=== PATIENT | female | born 1950 | race American Indian/Alaskan Native ===

== ENCOUNTER 2017-04-17 18:02 | Inpatient (IN) | payer OTHER ==
--- NOTE | 2017-04-17 18:28 | ED PDOC ---
HPI: Abdomen Time Seen by Provider: 04/17/17 18:23 Chief Complaint (Nursing): Fever Chief Complaint (Provider): Fever History Per: Patient Additional Complaint(s): Patient is a 66 yo female, PMH of DM, HTN and Hypothyroid, who presents to ED for evaluation of fever. Pt developed fever on a flight from [facility] on 04/11. No other associated symptoms, no cough, congestion, abdominal pain, nausea, vomiting or diarrhea. Patient had dental procedure on 04/09 while in [facility], had a tooth removed, was placed on spirmyacine and developed rash after taking. Pt seen and evaluated at [facility] 2 days ago and was started on Prednisone and Pt was advised to discontinue the medications. Pt was sent for b/l LE dopplers and was told that the results are negative today. Continued fever prompted ED visist. pt taking Paracetamol for fever, last dosage was last night. 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) Drugs: Denies - Allergies Allergies/Adverse Reactions: Allergies Allergy/AdvReac Type Severity Reaction Status Date / Time No Known Allergies Allergy Verified 04/17/17 18:13 Review of Systems ROS Statement: Except As Marked, All Systems Reviewed And Found Negative Constitutional: Positive for: Fever Physical Exam - Reviewed Nursing Documentation Reviewed: Yes Vital Signs Reviewed: Yes - Physical Exam Appears: Positive for: Well, Non-toxic, No Acute Distress Head Exam: Positive for: ATRAUMATIC, NORMAL INSPECTION, NORMOCEPHALIC Skin: Positive for: Normal Color, Warm, DRY Eye Exam: Positive for: EOMI, Normal appearance, PERRL ENT: Positive for: Normal ENT Inspection Neck: Positive for: Normal, Painless ROM Cardiovascular/Chest: Positive for: Regular Rate, Rhythm Respiratory: Positive for: CNT, Normal Breath Sounds Gastrointestinal/Abdominal: Positive for: Normal Exam, Bowel Sounds, Soft Back: Positive for: Normal Inspection Extremity: Positive for: Normal ROM Neurologic/Psych: Positive for: Alert, Oriented - Laboratory Results Result Diagrams: 04/17/17 19:05 04/17/17 19:05 - ECG O2 Sat by Pulse Oximetry: 98 Medical Decision Making Medical Decision Making: IV access established and diagnostics ordered. Pt medicated with Acetaminophen and IVF Case discussed with ED MD, Dr. Ivory, who agreed with treatment plan at this time. On re-eval Pt complaining of SOB. Duo neb initiated. WBC WNL D-Dimer elevated, CTA ordered Case endorsed to LINNEA Oro at 20:00 Disposition - Clinical Impression Clinical Impression: Fever in adult - Disposition Disposition: Transfer of Care (LINNEA Oro) Disposition Time: 20:11 Condition: STABLE - POA Present On Arrival: Poor Glycemic Control
[2017-04-17] MEDS ORDERED: Sodium Chloride 0.9% 1,000 ML IV STA (18:50)
[2017-04-17 19:21] LABS: BASO % 0.2 % (0.0-2.0); HEMOGLOBIN 11.9 g/dL (12.0-16.0); LYMPH # 2.7 K/uL (1.0-4.3); LYMPH % 24.3 % (20.0-40.0); MEAN CELL VOLUME 76.7 fl (81.0-99.0); MEAN CORPUSCULAR HGB CONC 32.5 g/dL (33.0-37.0); MEAN PLATELET VOLUME 8.2 fl (7.2-11.7); MONO % 9.5 % (0.0-10.0); NEUT # 7.2 K/uL (1.8-7.0); RBC 4.75 Mil/uL (3.80-5.20); RED CELL DISTRIBUTION WIDTH 14.9 % (11.5-14.5)
[2017-04-17 19:25] LABS: ALB/GLOB RATIO 1.3 (1.0-2.1); ALBUMIN 4.3 g/dL (3.5-5.0); ALT/SGPT 84 U/L (9-52); AST/SGOT 52 U/L (14-36); BLOOD UREA NITROGEN 45 mg/dl (7-17); CALCIUM 9.5 mg/dL (8.4-10.2); GFR AFRICAN-AMERICAN 54; GFR NON-AFRICAN AMERICAN 45
[2017-04-17 19:32] LABS: PARTIAL THROMBOPLASTIN TIME 26.3 Seconds (25.6-37.1); PROTHROMBIN TIME 11.4 Seconds (9.8-13.1); SQUAMOUS EPITHIAL < 1 /hpf (0-5); URINE BACTERIA FEW (<OCC); URINE BILIRUBIN NEGATIVE (NEGATIVE); URINE BLOOD NEGATIVE (NEGATIVE); URINE CLARITY CLEAR (Clear); URINE COLOR YELLOW (YELLOW); URINE GLUCOSE (UA) NEG (Normal); URINE LEUKOCYTE ESTERASE TRACE Leu/uL (Negative); URINE NITRATE NEGATIVE (NEGATIVE); URINE PROTEIN NEGATIVE (NEGATIVE); URINE UROBILINOGEN 0.2-1.0 mg/dL (0.2-1.0)
[2017-04-17 19:39] LABS: ABG ALLEN TEST YES; ARTERIAL BLOOD GAS O2 SAT 96.4 % (95-98); ARTERIAL BLOOD GAS PCO2 35 mm/Hg (35-45); ARTERIAL BLOOD GAS PH 7.48 (7.35-7.45); ARTERIAL BLOOD GAS PO2 60 mm/Hg (80-100); ARTERIAL BLOOD GAS TCO2 27.2 mmol/L (22-28)
[2017-04-17] MEDS ORDERED: Albuterol-Ipratrop 3 mg / 0.5 (3 ml) UD ONE (19:49)
[2017-04-17] MEDS ORDERED: Albuterol-Ipratrop 3 mg / 0.5 (3 ml) UD INH STA (19:49)
[2017-04-17] MEDS ORDERED: Iodixanol 320 MG/ML 100 ML BOTTLE IV ONE (20:24)
[2017-04-17] MEDS ORDERED: Sodium Chloride 0.9% 50 ML IV ONE (20:25)
--- NOTE | 2017-04-17 21:11 | ED PDOC ---
- Laboratory Results Result Diagrams: 04/17/17 19:05 04/17/17 19:05 - ECG O2 Sat by Pulse Oximetry: 98 - Radiology X-Ray: Interpreted by Me (increased lung markings) - Progress ED Course And Treament: case signed out to advertising copy writer. pt presented to ED with fever and mild cough. [place] a rash-suspended use of abx and rash has cleared afer which fever commenced. fever lasting about 1 week with mild couhg. no other co-morbidities. pt now pending lab results: ESR/HIV/rapid strep/mono/chest xray. pt will get IV bolus of fluids- BUN elevated, but creatinine is normal. MD Dianelys is aware of case. CT scan: FINDINGS: No pulmonary embolism. No aortic dissection or aneurysm. No pleural or pericardial effussions. There are faint hazy opacities in the lower lungs bilaterally and in the lingula that are a nonspecific finding however could be indicative of developing infectious/inflammatory process or developing edema. No focal infiltrate or consolidation identified. There are degenerative changes in the osseous structures. Medical Decision Making Medical Decision Making: pt presented to ED febrile, SOB pt will be admitted due to findings on CT scan of chest for PNA. currently VS are stable and pt will be started on Rocephin admitted under hospitalist_MD cira Pt also described a lesion to left sided abdomen -states it began after taking prednisone for rash 2 days ago and has noted it to be swollen/red/irritated without drainage Disposition - Clinical Impression Clinical Impression: Fever in adult, Pneumonia - POA Present On Arrival: None Core Measure Indicators: Pneumonia - Disposition Disposition: Admitted as In-Patient Disposition Time: 22:57 Condition: STABLE
--- NOTE | 2017-04-17 22:33 | CT ---
EXAM: CT Angiography Chest With Intravenous Contrast CLINICAL HISTORY: 66 years old, female; Signs and symptoms; Fever and shortness of breath; Additional info: SOB, recent flihgt TECHNIQUE: Axial computed tomographic angiography images of the chest with intravenous contrast using pulmonary embolism protocol. This CT exam was performed using one or more of the following dose reduction techniques: automated exposure control, adjustment of the mA and/or kV according to patient size, and/or use of iterative reconstruction technique. MIP reconstructed images were created and reviewed. Coronal and sagittal reformatted images were created and reviewed. CONTRAST: 85 mL of [id number] administered intravenously. EXAM DATE/TIME: 04/17/2017 7:49 PM COMPARISON: No relevant prior studies available. FINDINGS: No pulmonary embolism. No aortic dissection or aneurysm. No pleural or pericardial effussions. There are faint hazy opacities in the lower lungs bilaterally and in the lingula that are a nonspecific finding however could be indicative of developing infectious/inflammatory process or developing edema. No focal infiltrate or consolidation identified. There are degenerative changes in the osseous structures. IMPRESSION: Small faint hazy opacities in the lower lungs and lingula as discussed above.
[2017-04-17] MEDS ORDERED: Azithromycin 500 MG in Sodium Chloride 0.9% 250 ML IVPB STA (22:42)
[2017-04-17] MEDS ORDERED: cefTRIAXone (Rocephin) 1 gm Inj ONE (22:59)
--- NOTE | 2017-04-17 23:37 | CP.PCM.HP ---
History of Present Illness - History of Present Illness History of Present Illness: PCP: Not on staff Chief Complaint:Fever The patient's Daughter was the wrist liner. HPI: 66 years old female with hx of HTN, DM II, Hypothyroidism, developed fever on flight from [facility] 04/11/17. She referred a dental extraction on 04/09/17 while in [facility]. She was placed on Spirmyacine to which she developed a rash. She was seen at the Urgent care on 04/15/17 and was started on prednisone and to discontinue the antibiotic. She was also negative for DVT by a Duplex ultra sound of the lower extremities. Because of the Persisting fever she came to the ED. The patient also referred very mild cough but no expectoration, no nausea, vomits, SOB nor chest pain. PMH: HTN, DM II, Hypothyroidism; PSH: no surgical hx SH: No illegal drug use;No alcoholnor cigarette smoking. FH: Unknown family hx Allergies: NKDA Present on Admission - Present on Admission Any Indicators Present on Admission: No History of DVT/PE: No History of Uncontrolled Diabetes: No Urinary Catheter: No Decubitus Ulcer Present: No Review of Systems - Constitutional Constitutional: Fatigue, Fever. absent: Anorexia, Chills, Headache - EENT Eyes: Requires Corrective Lenses. absent: Floaters, Loss of Peripheral Vision, Photophobia, Sees Flashes Ears: absent: Decreased Hearing, Tinnitus, Dizziness Nose/Mouth/Throat: absent: Epistaxis, Nasal Congestion, Nasal Discharge - Cardiovascular Cardiovascular: absent: Chest Pain, Diaphoresis, Dyspnea on Exertion, Edema - Respiratory Respiratory: absent: Dyspnea - Gastrointestinal Gastrointestinal: absent: Abdominal Pain, Constipation, Diarrhea, Hematochezia - Genitourinary Genitourinary: absent: Dysuria, Flank Pain, Hematuria, Urinary Frequency - Musculoskeletal Musculoskeletal: Back Pain. absent: Deformity, Joint Swelling, Loss of Height - Integumentary Additional comments: Erythematous papular rash diffuse on the upper extremities and the lower extremities left abdominal wall with an erythematous lesion 1cm+ at the mid left abdomen, non tender to palpation and - Neurological Neurological: absent: Confusion, Dizziness, Focal Weakness, Headaches, Sensory Deficit, Syncope - Psychiatric Psychiatric: absent: Anxiety, Depression, Difficulty Concentrating, Panic Attacks - Endocrine Endocrine: absent: Palpitations, Polydipsia, Polyphagia, Polyuria - Hematologic/Lymphatic Hematologic: absent: Easy Bleeding, Easy Bruising Past Patient History - Past Social History Smoking Status: Never Smoked Chewing Tobacco Use: No Cigar Use: No Alcohol: > 2 Drinks/Day (former alcoholic) Drugs: Denies Home Situation {Lives}: With Family - CARDIAC Hx Hypertension: Yes - PULMONARY Hx Respiratory Disorders: No - NEUROLOGICAL Hx Neurological Disorder: No - HEENT Hx HEENT Problems: No - RENAL Hx Chronic Kidney Disease: No - ENDOCRINE/METABOLIC Hx Diabetes Mellitus Type 2: Yes Hx Hyperthyroidism: Yes - INTEGUMENTARY Hx Dermatological Problems: No - GASTROINTESTINAL Hx Gastrointestinal Disorders: No - GENITOURINARY/GYNECOLOGICAL Hx Genitourinary Disorders: Yes Other/Comment: ovarian cysts. - PSYCHIATRIC Hx Substance Use: No - SURGICAL HISTORY Hx Abdominal Aortic Aneurysm Repair: No - ANESTHESIA Hx Anesthesia: No Meds Allergies/Adverse Reactions: Allergies Allergy/AdvReac Type Severity Reaction Status Date / Time No Known Allergies Allergy Verified 04/17/17 18:13 Physical Exam - Head Exam Head Exam: ATRAUMATIC, NORMAL INSPECTION, NORMOCEPHALIC - Eye Exam Eye Exam: EOMI, Normal appearance Pupil Exam: NORMAL ACCOMODATION, PERRL - ENT Exam ENT Exam: Mucous Membranes Moist, Normal Exam, Normal External Ear Exam, Normal Oropharynx - Neck Exam Neck exam: Positive for: Full Rom, Normal Inspection. Negative for: Lymphadenopathy, Tenderness - Respiratory Exam Respiratory Exam: Clear to Auscultation Bilateral, Rales, Rhonchi, Wheezes. absent: Stridor - Cardiovascular Exam Cardiovascular Exam: REGULAR RHYTHM, RRR, +S1, +S2 - GI/Abdominal Exam Additional comments: Full, Soft, nontender, decreased bowel sounds - Rectal Exam Rectal Exam: Deferred - Extremities Exam Extremities exam: Positive for: normal inspection - Back Exam Back exam: NORMAL INSPECTION Additional comments: pain to the right lower back which developed in the ER while lying on the stretche, - Neurological Exam Neurological exam: Alert, CN II-XII Intact, Oriented x3, Reflexes Normal - Psychiatric Exam Psychiatric exam: Normal Affect, Normal Mood - Skin Skin Exam: Dry, Intact, Normal Color, Warm Results - Vital Signs Recent Vital Signs: Last Vital Signs Temp 98.2 F 04/17/17 22:45 Pulse 85 04/17/17 22:45 Resp 21 04/17/17 22:45 BP 102/51 L 04/17/17 22:45 Pulse Ox 98 04/17/17 22:59 - Labs Result Diagrams: 04/17/17 19:05 04/17/17 19:05 Labs: Laboratory Results - last 24 hr 04/17/17 22:42 HIV-1 Ab Rapid Screen Non reactive - EKG Data EKG comments: EKG NSR at 78 bpm, no axis devation or Acute ST changes - Imaging and Cardiology CT scan - chest Status: Report reviewed by me Additional comment: FINDINGS: No pulmonary embolism. No aortic dissection or aneurysm. No pleural or pericardial effussions. There are faint hazy opacities in the lower lungs bilaterally and in the lingula that are a nonspecific finding however could be indicative of developing infectious/inflammatory process or developing edema. No focal infiltrate or consolidation identified. There are degenerative changes in the osseous structures. IMPRESSION: Small faint hazy opacities in the lower lungs and lingula as discussed above. Assessment & Plan - Assessment and Plan (Free Text) Assessment: #.Fever #. Lung Opacity #. Azotemia #. Leukocytosis #. DM II Plan: 66 years old female with hx of HTN, DM II, Hypothyroidism, developed fever on flight from [facility] 04/11/17. She had a dental extraction on 04/09/17nd was placed on Spirmyacine to which she developed a rash. She was seen at the Urgent care on 04/15/17 and was started on prednisone. Because of the Persisting fever she came to the ED. #.Fever etiology unclear. with hx of incomplete antibiotics post dental extraction, which could mean an infected tooth. She has mild drug rash which could give her fever and she has the lung opacity. - Follow blood cultures - Consult Dr Holbrook ID - Patient started on Rocephin and Azithromycin #. Lung Opacity r/o Pneumonia - Consult DR King Pulnilo - Continue above antibiotics #. Azotemia - IV Fluids D5 1/2 normal saline - follow renal labs #. Leukocytosis - follow WBC #. DM II - Diabetic diet - Regular insulin with Accucheck ACHS #. Elevated D Dimer- CT Chest negative for PE #. DVT Prophylaxis with Lovenox #. Code Status D - Date & Time Date: 04/17/17 Time: 23:37
[2017-04-18 07:28] LABS: BASO % 0.2 % (0.0-2.0); EOS % 0.1 % (0.0-4.0); HEMOGLOBIN 10.8 g/dL (12.0-16.0); LYMPH # 1.3 K/uL (1.0-4.3); MEAN CELL VOLUME 77.3 fl (81.0-99.0); MEAN CORPUSCULAR HEMOGLOBIN 24.8 pg (27.0-31.0); MEAN CORPUSCULAR HGB CONC 32.2 g/dL (33.0-37.0); MEAN PLATELET VOLUME 8.1 fl (7.2-11.7); MONO # 0.6 K/uL (0.0-0.8); NEUT # 4.5 K/uL (1.8-7.0); NEUT % 70.7 % (50.0-75.0); RBC 4.35 Mil/uL (3.80-5.20); RED CELL DISTRIBUTION WIDTH 14.8 % (11.5-14.5); WHITE BLOOD COUNT 6.3 K/uL (4.8-10.8)
[2017-04-18] MEDS: Sodium Chloride 0.9% 1,000 ML IV SCH ×3 (08:37→17:37)
[2017-04-18] MEDS: GlipiZIDE 5 mg SR Tab PO SCH (08:45)
[2017-04-18] MEDS: Levothyroxine 75 MCG TAB PO SCH (08:45)
[2017-04-18] MEDS ORDERED: Patient's Own Med (Valsartan/Hydrochlorothiazide [Valsartan-Hctz 160-12.5 Mg Tab] 1 TAB) PO SCH (09:00)
[2017-04-18] MEDS: Enoxaparin 40 mg Syringe SC SCH (09:04)
--- NOTE | 2017-04-18 09:54 | CP.PCM.PN ---
Subjective - Date & Time of Evaluation Date of Evaluation: 04/18/17 Time of Evaluation: 09:44 - Subjective Subjective: Serenity is a 66 YO F is seen w/ her daughter at bedside. Patient states that she slept well overnight but had some chills thoughout the night. She had a TMAX last night of 99.7. Patient has a decreased appetite. She complains of a b/l temporal headache 6/10 which has been present for a week, which subsides to a 4/ 10 with tylenol. Denies head trauma, blurring of vision, dizziness, or vomiting. She does have some nausea. She has also developed some diffuse rash on the medial aspect of her forearm b/l which comes and goes, does not itch burn or hurt. Objective - Vital Signs/Intake and Output Vital Signs (last 24 hours): Temp Pulse Resp BP Pulse Ox 98.5 F 75 19 104/60 99 04/18/17 07:58 04/18/17 08:49 04/18/17 07:58 04/18/17 08:49 04/18/17 07:58 - Medications Medications: Current Medications Acetaminophen (Tylenol 325mg Tab) 650 mg PO Q4 PRN PRN Reason: Pain, Mild (1-3) Atorvastatin Calcium (Lipitor) 10 mg PO DAILY [facility] Last Admin: 04/18/17 08:45 Dose: 10 mg Diphenhydramine HCl (Benadryl) 25 mg PO Q6 PRN PRN Reason: Rash Enoxaparin Sodium (Lovenox) 40 mg SC DAILY [facility] PRN Reason: Protocol Last Admin: 04/18/17 09:04 Dose: 40 mg Glipizide (Glucotrol Xl) 5 mg PO BRK [facility] Last Admin: 04/18/17 08:45 Dose: 5 mg Hydrochlorothiazide (Microzide) 12.5 mg PO DAILY [facility] Last Admin: 04/18/17 08:45 Dose: 12.5 mg Azithromycin 500 mg/ Sodium (Chloride) 250 mls @ 250 mls/hr IVPB DAILY [facility] Ceftriaxone Sodium 1 gm/ (Sodium Chloride) 100 mls @ 100 mls/hr IVPB DAILY [facility] Last Admin: 04/18/17 09:15 Dose: 100 mls/hr Sodium Chloride (Sodium Chloride 0.9%) 1,000 mls @ 125 mls/hr IV .Q8H [facility] Stop: 04/19/17 00:39 Last Admin: 04/18/17 08:50 Dose: 125 mls/hr Levothyroxine Sodium (Synthroid) 75 mcg PO DAILY@0630 [facility] Last Admin: 04/18/17 08:45 Dose: 75 mcg Metoprolol Tartrate (Lopressor) 100 mg PO DAILY [facility] Last Admin: 04/18/17 08:49 Dose: 100 mg Prednisone (Prednisone Tab) 40 mg PO DAILY [facility] Stop: 04/20/17 09:01 Last Admin: 04/18/17 08:46 Dose: 40 mg Valsartan (Diovan) 160 mg PO DAILY [facility] Last Admin: 04/18/17 08:45 Dose: 160 mg - Labs Labs: 04/18/17 07:10 PT 11.4 Seconds (9.8-13.1) 04/17/17 19:05 INR 1.0 (0.9-1.2) 04/17/17 19:05 APTT 26.3 Seconds (25.6-37.1) 04/17/17 19:05 - Constitutional Appears: No Acute Distress - Head Exam Head Exam: ATRAUMATIC, NORMAL INSPECTION, NORMOCEPHALIC Additional comments: No tenderness on palpation on maxilary and frontal sinus regions - Eye Exam Eye Exam: Normal appearance - ENT Exam ENT Exam: Mucous Membranes Moist, Normal Exam - Respiratory Exam Respiratory Exam: Clear to Ausculation Bilateral, NORMAL BREATHING PATTERN. absent: Rhonchi, Wheezes - Cardiovascular Exam Cardiovascular Exam: REGULAR RHYTHM, +S1, +S2 - GI/Abdominal Exam GI & Abdominal Exam: Soft, Normal Bowel Sounds. absent: Tenderness - Rectal Exam Rectal Exam: NORMAL INSPECTION - Extremities Exam Additional comments: Diffuse rash over medial aspect of forearm b/l - Back Exam Back Exam: NORMAL INSPECTION - Neurological Exam Neurological Exam: Alert, Awake, CN II-XII Intact, Oriented x3 - Skin Skin Exam: Rash Additional comments: Erythematous papular diffuse rash on upper extremities . Left abdominal wall: Erythematous lesion 2cmx2 cm circular lesion. Non tender to palpate Assessment and Plan - Assessment and Plan (Free Text) Assessment: 66 years old female with hx of HTN, DM II, Hypothyroidism, developed fever on flight from [place] 04/11/17. She had a dental extraction on 04/09/17nd was placed on Spirmyacine to which she developed a rash. She was seen at the Urgent care on 04/15/17 and was started on prednisone. Because of the Persisting fever she came to the ED. 1) Fever etiology unclear. with hx of incomplete antibiotics post dental extraction, which could mean an infected tooth. She has mild drug rash which could give her fever and she has the lung opacity. - Afebrile currently, TMAX of 99.7 over night - WBC trending down - Follow blood cultures - Consult Dr Sheron ROSA - Continue Rocephin and Azithromycin . One dose of Vancomycin has been ordered for today as well. 2) Lung Opacity r/o Pneumonia - Consult DR King Pulmonmukesh - Continue above antibiotics 3) Azotemia - IV Fluids D5 1/2 normal saline - follow renal labs 4 )Leukocytosis ( Resloved) - WBC are trending down from 11 to 6.4 5) DM II - Diabetic diet - Regular insulin with Accucheck ACHS 6) Diffuse Rash - Benedryl ordered 25 mg PRN\ - Continue monitoring - ID consulted 7) Temporal headache - Tylenol 650 mg Q6 PRN 8). Elevated D Dimer- CT Chest negative for PE 9). DVT Prophylaxis - Lovenox Full code
--- NOTE | 2017-04-18 11:02 | RAD ---
HISTORY: fever COMPARISON: No prior. TECHNIQUE: Chest PA and lateral FINDINGS: LUNGS: The lungs are well inflated. There is bibasilar atelectasis. PLEURA: No significant pleural effusion identified. No pneumothorax apparent. CARDIOVASCULAR: Normal. OSSEOUS STRUCTURES: Within normal limits for the patient's age. VISUALIZED UPPER ABDOMEN: Normal. OTHER FINDINGS: None. IMPRESSION: Bibasilar atelectasis. No lobar pneumonia.
[2017-04-18 11:11] LABS: ALB/GLOB RATIO 1.2 (1.0-2.1); ALBUMIN 3.4 g/dL (3.5-5.0); ALT/SGPT 73 U/L (9-52); AST/SGOT 35 U/L (14-36); BLOOD UREA NITROGEN 27 mg/dl (7-17); CALCIUM 8.4 mg/dL (8.4-10.2); GFR AFRICAN-AMERICAN > 60; GFR NON-AFRICAN AMERICAN > 60
--- NOTE | 2017-04-18 11:30 | CARD ---
APPROVED REPORT EKG Measurement Heart [id number] <Conclusion> Normal sinus rhythm with sinus arrhythmia Normal ECG
[2017-04-18] MEDS ORDERED: Lidocaine 1% Inj (20ml) ONE (14:32)
--- NOTE | 2017-04-18 15:00 | PCM.SURG1 ---
Surgeon's Initial Post Op Note - Surgeon's Notes Surgeon: Guy Shepard MD Display And Banner Designer: [employer] Type of Anesthesia: Local Pre-Operative Diagnosis: Poor venous access Operative Findings: US showed patent right brachial vein. Post-Operative Diagnosis: Poor venous access Operation Performed: PLacement of single lumen picc 37 cm via the right brachial vein. Tip of picc is in SVC. Specimen/Specimens Removed: none Estimated Blood Loss: EBL {In ML}: 2 Blood Products Given: N/A Drains Used: No Drains Post-Op Condition: Fair Date of Surgery/Procedure: 04/18/17 Time of Surgery/Procedure: 14:55
[2017-04-18] MEDS: Azithromycin 500 MG in Sodium Chloride 0.9% 250 ML IVPB SCH (17:00)
--- NOTE | 2017-04-18 17:59 | CP.PCM.CON ---
History of Present Illness - History of Present Illness History of Present Illness: Pulmonary consult for cough/fever, r/o PNA. Call in Pulmonary consult on 66 y/o F, admitted to [facility] on 04/17/17 due to Fever( in ER 102.8 F), associated to intermittent mild cough, nonproductive, non bloody. As per Pt, she was out of the country visiting [facility] and was Tx for a dental work at same time, there after she was placed in Spirmyacine having adverse reaction to the abx. Pt developed rash on the L abdominal wall and extremities. the abx was discontinue and while she was flying back to this country she start developing cough and high fever. On evaluation Pt has been found with Tache Noire on left abdominal wall and nonpruritic rash on extremities, family is concern about the Bouttoneuse fever. Pt denied: Dizziness, LOC, n/v/d, abdominal pain, urinary symptoms, CP, Palpitation, SOB, chest congestion. PMHx: HTN, DMII, Hypothyroidism. CT Chest: Hazy opacities in the lower lungs and ingula, could be developing infectious or inflammatory process. CXR shows no PNA, Bibasilar atelectasis. Review of Systems - Constitutional Constitutional: Fever - EENT Eyes: Requires Corrective Lenses Nose/Mouth/Throat: Other (negative) - Cardiovascular Cardiovascular: Other (negative) - Respiratory Respiratory: Cough - Gastrointestinal Gastrointestinal: Other (negative) - Genitourinary Genitourinary: Other (negative) - Musculoskeletal Musculoskeletal: Back Pain - Integumentary Integumentary: Erythema, Rash - Neurological Neurological: Other (negative) - Psychiatric Psychiatric: Other (negative) - Endocrine Endocrine: Other (negative) - Hematologic/Lymphatic Hematologic: Other (negative) Past Patient History - Past Medical History & Family History Past Medical History?: Yes - Past Social History Smoking Status: Never Smoked Chewing Tobacco Use: No Cigar Use: No Alcohol: > 2 Drinks/Day (former alcoholic) Drugs: Denies Home Situation {Lives}: With Family - CARDIAC Hx Cardiac Disorders: Yes Hx Hypertension: Yes - PULMONARY Hx Respiratory Disorders: No - NEUROLOGICAL Hx Neurological Disorder: No - HEENT Hx HEENT Problems: No - RENAL Hx Chronic Kidney Disease: No - ENDOCRINE/METABOLIC Hx Endocrine Disorders: Yes Hx Diabetes Mellitus Type 2: Yes Hx Hyperthyroidism: Yes - HEMATOLOGICAL/ONCOLOGICAL Hx Blood Disorders: No Hx AIDS: No Hx Human Immunodeficiency Virus (HIV): No - INTEGUMENTARY Hx Dermatological Problems: No - MUSCULOSKELETAL/RHEUMATOLOGICAL Hx Falls: No - GASTROINTESTINAL Hx Gastrointestinal Disorders: No - GENITOURINARY/GYNECOLOGICAL Hx Genitourinary Disorders: Yes Other/Comment: ovarian cysts. - PSYCHIATRIC Hx Substance Use: No - SURGICAL HISTORY Hx Abdominal Aortic Aneurysm Repair: No - ANESTHESIA Hx Anesthesia: No Meds Home Medications: Home Medication List Medication Instructions Recorded Confirmed Type Doxycycline Hyclate 100 mg PO BID #14 capsule 04/19/17 Rx Allergies/Adverse Reactions: Allergies Allergy/AdvReac Type Severity Reaction Status Date / Time No Known Allergies Allergy Verified 04/17/17 18:13 - Medications Medications: Current Medications Acetaminophen (Tylenol 325mg Tab) 650 mg PO Q4 PRN PRN Reason: Pain, Mild (1-3) Atorvastatin Calcium (Lipitor) 10 mg PO DAILY [facility] Last Admin: 04/18/17 08:45 Dose: 10 mg Diphenhydramine HCl (Benadryl) 25 mg PO Q6 PRN PRN Reason: Rash Last Admin: 04/18/17 10:41 Dose: 25 mg Doxycycline Hyclate (Doryx) 100 mg PO Q12 [facility] Enoxaparin Sodium (Lovenox) 40 mg SC DAILY [facility] PRN Reason: Protocol Last Admin: 04/18/17 09:04 Dose: 40 mg Glipizide (Glucotrol Xl) 5 mg PO BRK [facility] Last Admin: 04/18/17 08:45 Dose: 5 mg Hydrochlorothiazide (Microzide) 12.5 mg PO DAILY [facility] Last Admin: 04/18/17 08:45 Dose: 12.5 mg Azithromycin 500 mg/ Sodium (Chloride) 250 mls @ 250 mls/hr IVPB DAILY [facility] Last Admin: 04/18/17 17:00 Dose: 250 mls/hr Ceftriaxone Sodium 1 gm/ (Sodium Chloride) 100 mls @ 100 mls/hr IVPB DAILY [facility] Last Admin: 04/18/17 09:15 Dose: 100 mls/hr Sodium Chloride (Sodium Chloride 0.9%) 1,000 mls @ 125 mls/hr IV .Q8H [facility] Stop: 04/19/17 00:39 Last Admin: 04/18/17 17:37 Dose: Not Given Levothyroxine Sodium (Synthroid) 75 mcg PO DAILY@0630 [facility] Last Admin: 04/18/17 08:45 Dose: 75 mcg Metoprolol Tartrate (Lopressor) 100 mg PO DAILY [facility] Last Admin: 04/18/17 08:49 Dose: 100 mg Prednisone (Prednisone Tab) 40 mg PO DAILY [facility] Stop: 04/20/17 09:01 Last Admin: 04/18/17 08:46 Dose: 40 mg Valsartan (Diovan) 160 mg PO DAILY [facility] Last Admin: 04/18/17 08:45 Dose: 160 mg Physical Exam - Head Exam Head Exam: NORMAL INSPECTION - Eye Exam Eye Exam: PERRL - ENT Exam ENT Exam: Mucous Membranes Moist - Neck Exam Neck exam: Positive for: Full Rom, Normal Inspection - Respiratory Exam Respiratory Exam: Decreased Breath Sounds - Cardiovascular Exam Cardiovascular Exam: REGULAR RHYTHM - GI/Abdominal Exam GI & Abdominal Exam: Normal Bowel Sounds, Soft - Extremities Exam Extremities exam: Positive for: normal inspection - Back Exam Back exam: NORMAL INSPECTION - Neurological Exam Neurological exam: Alert, CN II-XII Intact, Oriented x3 - Psychiatric Exam Psychiatric exam: Normal Mood - Skin Skin Exam: Dry, Rash (+ Tache Noire abdominal wall.) Results - Vital Signs Recent Vital Signs: Last Vital Signs Temp 99.9 F H 04/18/17 16:20 Pulse 71 04/18/17 16:20 Resp 18 04/18/17 16:20 BP 122/65 04/18/17 16:20 Pulse Ox 93 L 04/18/17 16:20 zoe, Janis - Labs Result Diagrams: 04/19/17 05:20 04/19/17 05:20 Labs: Laboratory Results - last 24 hr 04/18/17 04/18/17 04/18/17 07:10 10:56 11:08 WBC 6.3 RBC 4.35 Hgb 10.8 L Hct 33.6 L MCV 77.3 L MCH 24.8 L MCHC 32.2 L RDW 14.8 H Plt Count 225 MPV 8.1 Neut % (Auto) 70.7 Lymph % (Auto) 20.0 [place] % (Auto) 9.0 Eos % (Auto) 0.1 Baso % (Auto) 0.2 Neut # 4.5 Lymph # 1.3 [place] # 0.6 Eos # 0.0 Baso # 0.0 Sodium 135 Potassium 4.1 Chloride 102 Carbon Dioxide 25 Anion Gap 13 BUN 27 H Creatinine 0.9 Est GFR ( Amer) > 60 Est GFR (Non-Af Amer) > 60 POC Glucose (mg/dL) 219 H Random Glucose 107 H Calcium 8.4 Total Bilirubin 0.3 AST 35 ALT 73 H Alkaline Phosphatase 136 H Total Protein 6.3 Albumin 3.4 L D Globulin 2.9 Albumin/Globulin Ratio 1.2 04/18/17 15:46 WBC RBC Hgb Hct MCV MCH MCHC RDW Plt Count MPV Neut % (Auto) Lymph % (Auto) [place] % (Auto) Eos % (Auto) Baso % (Auto) Neut # Lymph # [place] # Eos # Baso # Sodium Potassium Chloride Carbon Dioxide Anion Gap BUN Creatinine Est GFR ( Amer) Est GFR (Non-Af Amer) POC Glucose (mg/dL) 391 H Random Glucose Calcium Total Bilirubin AST ALT Alkaline Phosphatase Total Protein Albumin Globulin Albumin/Globulin Ratio reviewed J.P. - EKG Data EKG comments: reviewed J.P. - Imaging and Cardiology CT scan - chest Status: Report reviewed by me (J.P.) Chest x-ray Status: Report reviewed by me (FredrickP.) Assessment & Plan (1) Fever in adult Status: Acute Priority: High (2) Skin rash Status: Acute Priority: High - Assessment and Plan (Free Text) Plan: Developing PNA can not be completely rule out, f/u Serial CXR. and work up other etiology of fever. - Date & Time Date: 04/18/17 Time: 14:00
--- NOTE | 2017-04-18 19:02 | CP.PCM.CON ---
History of Present Illness - History of Present Illness History of Present Illness: 66 yo female, PMH of DM, HTN and Hypothyroid, who presents to ED for evaluation of fever. Pt developed fever on a flight from [facility] [place] on 04/11. No other associated symptoms, no cough, congestion, abdominal pain, nausea, vomiting or diarrhea. Patient had dental procedure on 04/09 while in [facility] [place], had a tooth removed, was placed on spirmyacine and developed rash after taking. Pt seen and evaluated at [facility] 2 days ago and was started on Prednisone and Pt was advised to discontinue the medications. Pt was sent for b/l LE dopplers and was told that the results are negative today. Continued fever prompted ED visist. pt taking Paracetamol for fever, last dosage was last night. family concerned for boutonneuse fever transmitted by dog tick caused by ricketssia connori patient has tache noire on left abd wall and nonpruritic rash on extremities Review of Systems - Review of Systems Systems not reviewed;Unavailable: Language Barrier - Constitutional Constitutional: As Per HPI - EENT Eyes: absent: As Per HPI, Blind Spots, Blurred Vision, Change in Vision, Decreased Night Vision, Diplopia, Discharge, Dry Eye, Exophthalmos, Floaters, Irritation, Itchy Eyes, Loss of Peripheral Vision, Pain, Photophobia, Requires Corrective Lenses, Sees Flashes, Spots in Vision, Tunnel Vision, Other Visual Disturbances, Loss of Vision, Other Ears: absent: As Per HPI, Decreased Hearing, Ear Discharge, Ear Pain, Tinnitus, Abnormal Hearing, Disequilibrium, Dizziness, Other Nose/Mouth/Throat: absent: As Per HPI, Epistaxis, Nasal Congestion, Nasal Discharge, Nasal Obstruction, Nasal Trauma, Nose Pain, Post Nasal Drip, Sinus Pain, Sinus Pressure, Bleeding Gums, Change in Voice, Dental Pain, Dry Mouth, Dysphagia, Halitosis, Hoarsness, Lip Swelling, Mouth Lesions, Mouth Pain, Odynophagia, Sore Throat, Throat Swelling, Tongue Swelling, Facial Pain, Neck Pain, Neck Mass, Other - Breasts Breasts: absent: As Per HPI, Change in Shape, Mass, Pain, Nipple Discharge, Nipple Inversion, Skin Changes, Swelling, Other - Cardiovascular Cardiovascular: absent: As Per HPI, Acrocyanosis, Chest Pain, Chest Pain at Rest , Chest Pain with Activity, Claudication, Diaphoresis, Dyspnea, Dyspnea on Exertion, Edema, Irregular Heart Rhythm, Pain Radiating to Arm/Neck/Jaw, Leg Edema, Leg Ulcers, Lightheadedness, Orthopnea, Palpitations, Paroxysmal Nocturnal Dyspnea, Pedal Edema, Radiating Pain, Rapid Heart Rate, Slow Heart Rate, Syncope, Other - Respiratory Respiratory: absent: As Per HPI, Cough, Dyspnea, Hemoptysis, Dyspnea on Exertion , Wheezing, Snoring, Stridor, Pain on Inspiration, Chest Congestion, Excessive Mucous Production, Change in Mucous Color, Pain with Coughing, Other - Gastrointestinal Gastrointestinal: absent: As Per HPI, Abdominal Pain, Belching, Bloating, Change in Bowel Habits, Change in Stool Character, Coffee Ground Emesis, Constipation, Cramping, Diarrhea, Dyspepsia, Dysphagia, Early Satiety, Excessive Flatus, Fecal Incontinence, Heartburn, Hematemesis, Hematochezia, Loose Stools, Melena, Nausea, Odynophagia, Temesmus, Vomiting, Other - Genitourinary Genitourinary: absent: As Per HPI, Change in Urinary Stream, Difficulty Urinating, Dysuria, Flank Pain, Hematuria, Pyuria, Nocturia, Urinary Incontinence, Urinary Frequency, Urinary Hesitance, Urinary Urgency, Voiding Freq/Small Amts, Freq UTI, Hx Renal/Bladder Calculi, Hx /Renal Surgery, Bladder Distension, Other - Reproductive: Female Reproductive:Female: absent: As Per HPI, Amenorrhea, Amenorrhea/ Control, Currently Menstual, Cycle <21 Days, Cycle >35 Days, Cycle Variable, Menses 1-7 Days, Menses >/= 8 Days, Menses Variable, Cycle > 4 Weeks Between, No Menses for 6 Months, Heavy Menses, Light Menses, Normal Menses, Spotting Between Cycles , S/P Hysterectomy, Menopausal, Post Menopausal, Premenarche, Abnormal Vaginal Bleeding, Dysmenorrhea, Dyspareunia, Genital Lesions, Genital Pruritis, Pelvic Pain, Prolapse Symptoms, Sexual Dysfunction, Vaginal Discharge, Vaginal Dryness , Vaginal Odor, Vaginal Pruritis, Other - Menstruation Menstruation: absent: As Per HPI, Amenorrhea, Amenorrhea/ Control, Currently Menstual, Cycle <21 Days, Cycle >35 Days, Cycle Variable, Menses 1-7 Days, Menses >/= 8 Days, Menses Variable, Cycle > 4 Weeks Between, No Menses for 6 Months, Heavy Menses, Light Menses, Normal Menses, Spotting Between Cycles , S/P Hysterectomy, Menopausal, Post Menopausal, Premenarche, Abnormal Vaginal Bleeding, Dysmenorrhea, Other - Musculoskeletal Musculoskeletal: absent: As Per HPI, Abnormal Gait, Arthralgias, Atrophy, Back Pain, Deformity, Joint Swelling, Limited Range of Motion, Loss of Height, Muscle Cramps, Muscle Weakness, Myalgias, Neck Pain, Numbness, Radiating Pain into Limb, Stiffness, Tingling, Other - Integumentary Integumentary: As Per HPI - Neurological Neurological: absent: As Per HPI, Abnormal Gait, Abnormal Hearing, Abnormal Movements, Abnormal Speech, Behavioral Changes, Burning Sensations, Confusion, Convulsions, Disequilibrium, Dizziness, Numbness, Focal Weakness, Frequent Falls , Headaches, Lack of Coordination, Loss of Vision, Memory Loss, Paresthesias, Radicular Pain, Restless Legs, Sensory Deficit, Syncope, Tingling, Tremor, Vertigo, Weakness, Other Visual Disturbances, Other - Psychiatric Psychiatric: absent: As Per HPI, Abnormal Sleep Pattern, Anhedonia, Anxiety, Auditory Hallucinations, Behavioral Changes, Change in Appetite, Change in Libido, Confusion, Depression, Difficulty Concentrating, Hallucinations, Homicidal Ideation, Hopelessness, Irritability, Memory Loss, Mood Swings, Panic Attacks, Paranoia, Suicidal Ideation, Visual Hallucinations, Tactile Hallucinations, Other - Endocrine Endocrine: absent: As Per HPI, Change in Body Appearance, Change in Libido, Cold Intolorance, Deepening of Voice, Excessive Sweating, Fatigue, Flushing, Heat Intolorance, Increase in Ring/Shoe/Hat Size, Palpitations, Polydipsia, Polyphagia, Polyuria, Other - Hematologic/Lymphatic Hematologic: absent: As Per HPI, Easy Bleeding, Easy Bruising, Lymphadenopathy, Other Past Patient History - Past Medical History & Family History Past Medical History?: Yes - Past Social History Smoking Status: Never Smoked Chewing Tobacco Use: No Cigar Use: No Alcohol: > 2 Drinks/Day (former alcoholic) Drugs: Denies Home Situation {Lives}: With Family - CARDIAC Hx Hypertension: Yes - PULMONARY Hx Respiratory Disorders: No - NEUROLOGICAL Hx Neurological Disorder: No - HEENT Hx HEENT Problems: No - RENAL Hx Chronic Kidney Disease: No - ENDOCRINE/METABOLIC Hx Diabetes Mellitus Type 2: Yes Hx Hyperthyroidism: Yes - HEMATOLOGICAL/ONCOLOGICAL Hx Blood Disorders: No Hx AIDS: No Hx Human Immunodeficiency Virus (HIV): No - INTEGUMENTARY Hx Dermatological Problems: No - MUSCULOSKELETAL/RHEUMATOLOGICAL Hx Falls: No - GASTROINTESTINAL Hx Gastrointestinal Disorders: No - GENITOURINARY/GYNECOLOGICAL Hx Genitourinary Disorders: Yes Other/Comment: ovarian cysts. - PSYCHIATRIC Hx Substance Use: No - SURGICAL HISTORY Hx Abdominal Aortic Aneurysm Repair: No - ANESTHESIA Hx Anesthesia: No Meds Allergies/Adverse Reactions: Allergies Allergy/AdvReac Type Severity Reaction Status Date / Time No Known Allergies Allergy Verified 04/17/17 18:13 - Medications Medications: Current Medications Acetaminophen (Tylenol 325mg Tab) 650 mg PO Q4 PRN PRN Reason: Pain, Mild (1-3) Atorvastatin Calcium (Lipitor) 10 mg PO DAILY [facility] Last Admin: 04/18/17 08:45 Dose: 10 mg Diphenhydramine HCl (Benadryl) 25 mg PO Q6 PRN PRN Reason: Rash Last Admin: 04/18/17 10:41 Dose: 25 mg Doxycycline Hyclate (Doryx) 100 mg PO Q12 [facility] Enoxaparin Sodium (Lovenox) 40 mg SC DAILY [facility] PRN Reason: Protocol Last Admin: 04/18/17 09:04 Dose: 40 mg Glipizide (Glucotrol Xl) 5 mg PO BRK [facility] Last Admin: 04/18/17 08:45 Dose: 5 mg Hydrochlorothiazide (Microzide) 12.5 mg PO DAILY [facility] Last Admin: 04/18/17 08:45 Dose: 12.5 mg Azithromycin 500 mg/ Sodium (Chloride) 250 mls @ 250 mls/hr IVPB DAILY [facility] Last Admin: 04/18/17 17:00 Dose: 250 mls/hr Ceftriaxone Sodium 1 gm/ (Sodium Chloride) 100 mls @ 100 mls/hr IVPB DAILY [facility] Last Admin: 04/18/17 09:15 Dose: 100 mls/hr Sodium Chloride (Sodium Chloride 0.9%) 1,000 mls @ 125 mls/hr IV .Q8H [facility] Stop: 04/19/17 00:39 Last Admin: 04/18/17 17:37 Dose: Not Given Levothyroxine Sodium (Synthroid) 75 mcg PO DAILY@0630 [facility] Last Admin: 04/18/17 08:45 Dose: 75 mcg Metoprolol Tartrate (Lopressor) 100 mg PO DAILY [facility] Last Admin: 04/18/17 08:49 Dose: 100 mg Prednisone (Prednisone Tab) 40 mg PO DAILY [facility] Stop: 04/20/17 09:01 Last Admin: 04/18/17 08:46 Dose: 40 mg Valsartan (Diovan) 160 mg PO DAILY [facility] Last Admin: 04/18/17 08:45 Dose: 160 mg Physical Exam - Constitutional Appears: Non-toxic, Chronically Ill - Head Exam Head Exam: NORMOCEPHALIC - Eye Exam Eye Exam: PERRL. absent: Scleral icterus - ENT Exam ENT Exam: Mucous Membranes Dry, Normal External Ear Exam - Neck Exam Neck exam: Negative for: Lymphadenopathy - Respiratory Exam Respiratory Exam: Decreased Breath Sounds, Clear to Auscultation Bilateral - Cardiovascular Exam Cardiovascular Exam: REGULAR RHYTHM, +S1, +S2 - GI/Abdominal Exam GI & Abdominal Exam: Diminished Bowel Sounds, Soft. absent: Tenderness - Rectal Exam Rectal Exam: Deferred - Exam Exam: NORMAL INSPECTION - Extremities Exam Extremities exam: Negative for: calf tenderness, pedal edema - Back Exam Back exam: absent: CVA tenderness (L), CVA tenderness (R) - Neurological Exam Neurological exam: Alert, CN II-XII Intact, Oriented x3 - Psychiatric Exam Psychiatric exam: Normal Mood - Skin Skin Exam: Dry, Rash Additional comments: + Tache Noire abd wall Results - Vital Signs Recent Vital Signs: Last Vital Signs Temp 99.9 F H 04/18/17 16:20 Pulse 71 04/18/17 16:20 Resp 18 04/18/17 16:20 BP 122/65 04/18/17 16:20 Pulse Ox 93 L 04/18/17 16:20 - Labs Result Diagrams: 04/18/17 07:10 04/18/17 10:56 Labs: Laboratory Results - last 24 hr 04/18/17 04/18/17 04/18/17 07:10 10:56 11:08 WBC 6.3 RBC 4.35 Hgb 10.8 L Hct 33.6 L MCV 77.3 L MCH 24.8 L MCHC 32.2 L RDW 14.8 H Plt Count 225 MPV 8.1 Neut % (Auto) 70.7 Lymph % (Auto) 20.0 [place] % (Auto) 9.0 Eos % (Auto) 0.1 Baso % (Auto) 0.2 Neut # 4.5 Lymph # 1.3 [place] # 0.6 Eos # 0.0 Baso # 0.0 Sodium 135 Potassium 4.1 Chloride 102 Carbon Dioxide 25 Anion Gap 13 BUN 27 H Creatinine 0.9 Est GFR ( Amer) > 60 Est GFR (Non-Af Amer) > 60 POC Glucose (mg/dL) 219 H Random Glucose 107 H Calcium 8.4 Total Bilirubin 0.3 AST 35 ALT 73 H Alkaline Phosphatase 136 H Total Protein 6.3 Albumin 3.4 L D Globulin 2.9 Albumin/Globulin Ratio 1.2 04/18/17 15:46 WBC RBC Hgb Hct MCV MCH MCHC RDW Plt Count MPV Neut % (Auto) Lymph % (Auto) [place] % (Auto) Eos % (Auto) Baso % (Auto) Neut # Lymph # [place] # Eos # Baso # Sodium Potassium Chloride Carbon Dioxide Anion Gap BUN Creatinine Est GFR ( Amer) Est GFR (Non-Af Amer) POC Glucose (mg/dL) 391 H Random Glucose Calcium Total Bilirubin AST ALT Alkaline Phosphatase Total Protein Albumin Globulin Albumin/Globulin Ratio Assessment & Plan (1) Fever in adult Status: Acute - Assessment and Plan (Free Text) Assessment: r/o bouttoneuse fever add doxy
[2017-04-18] MEDS: Insulin Regular 100 units/ml SC SCH (23:23)
[2017-04-19] MEDS: Levothyroxine 75 MCG TAB PO SCH (06:44)
[2017-04-19] MEDS: Insulin Regular 100 units/ml SC SCH ×2 (06:47→12:29)
[2017-04-19 06:58] LABS: ALB/GLOB RATIO 1.2 (1.0-2.1); ALBUMIN 3.2 g/dL (3.5-5.0); ALT/SGPT 73 U/L (9-52); AST/SGOT 45 U/L (14-36); BLOOD UREA NITROGEN 14 mg/dl (7-17); CALCIUM 8.3 mg/dL (8.4-10.2); GFR AFRICAN-AMERICAN > 60; GFR NON-AFRICAN AMERICAN > 60
[2017-04-19 07:16] LABS: BASO % 0.2 % (0.0-2.0); EOS % 0.1 % (0.0-4.0); HEMOGLOBIN 10.1 g/dL (12.0-16.0); LYMPH # 1.7 K/uL (1.0-4.3); LYMPH % 28.3 % (20.0-40.0); MEAN CELL VOLUME 76.1 fl (81.0-99.0); MEAN CORPUSCULAR HEMOGLOBIN 25.5 pg (27.0-31.0); MEAN CORPUSCULAR HGB CONC 33.5 g/dL (33.0-37.0); MEAN PLATELET VOLUME 8.3 fl (7.2-11.7); MONO # 0.7 K/uL (0.0-0.8); MONO % 10.8 % (0.0-10.0); NEUT # 3.7 K/uL (1.8-7.0); NEUT % 60.6 % (50.0-75.0); NRBC % 0.1 % (0.0-0.0); RBC 3.94 Mil/uL (3.80-5.20); RED CELL DISTRIBUTION WIDTH 14.8 % (11.5-14.5); WHITE BLOOD COUNT 6.2 K/uL (4.8-10.8)
[2017-04-19 07:34] VITALS: BP 121/66; PULSE 67; RESP 17; TEMP 97.9; O2SAT 95
[2017-04-19] MEDS: Enoxaparin 40 mg Syringe SC SCH (09:33)
[2017-04-19] MEDS: Azithromycin 500 MG in Sodium Chloride 0.9% 250 ML IVPB SCH (09:33)
[2017-04-19] MEDS: GlipiZIDE 5 mg SR Tab PO SCH (09:35)
--- NOTE | 2017-04-19 10:42 | CP.PCM.PN ---
Subjective - Date & Time of Evaluation Date of Evaluation: 04/19/17 Time of Evaluation: 10:39 - Subjective Subjective: - Patient seen at bedside and doing well. She states that she is feeling much better after starting the antibiotics in the evening. She has been eating and tolerating PO intake. Denies any nausea or vomiting. Her headache has resolved , Rashes over upper extremities have all resolved. She however still has the abdominal wall tache noire. She has had a TMAX of 99.9 which was yesterday. Denies any overnight events Objective - Vital Signs/Intake and Output Vital Signs (last 24 hours): Temp Pulse Resp BP Pulse Ox 97.9 F 67 17 121/66 95 04/19/17 07:33 04/19/17 07:33 04/19/17 07:33 04/19/17 07:33 04/19/17 07:33 - Medications Medications: Current Medications Acetaminophen (Tylenol 325mg Tab) 650 mg PO Q4 PRN PRN Reason: Pain, Mild (1-3) Atorvastatin Calcium (Lipitor) 10 mg PO DAILY [facility] Last Admin: 04/19/17 09:35 Dose: 10 mg Diphenhydramine HCl (Benadryl) 25 mg PO Q6 PRN PRN Reason: Rash Last Admin: 04/18/17 10:41 Dose: 25 mg Doxycycline Hyclate (Doryx) 100 mg PO Q12 [facility] Last Admin: 04/19/17 09:34 Dose: 100 mg Enoxaparin Sodium (Lovenox) 40 mg SC DAILY [facility] PRN Reason: Protocol Last Admin: 04/19/17 09:33 Dose: 40 mg Glipizide (Glucotrol Xl) 5 mg PO BRK [facility] Last Admin: 04/19/17 09:35 Dose: 5 mg Hydrochlorothiazide (Microzide) 12.5 mg PO DAILY [facility] Last Admin: 04/19/17 09:34 Dose: 12.5 mg Azithromycin 500 mg/ Sodium (Chloride) 250 mls @ 250 mls/hr IVPB DAILY [facility] Last Admin: 04/19/17 09:33 Dose: 250 mls/hr Ceftriaxone Sodium 1 gm/ (Sodium Chloride) 100 mls @ 100 mls/hr IVPB DAILY [facility] Last Admin: 04/19/17 09:33 Dose: 100 mls/hr Insulin Human Regular (Humulin R) 0 units SC ACHS [facility] Last Admin: 04/19/17 06:47 Dose: 4 units Levothyroxine Sodium (Synthroid) 75 mcg PO DAILY@0630 [facility] Last Admin: 04/19/17 06:44 Dose: 75 mcg Metoprolol Tartrate (Lopressor) 100 mg PO DAILY [facility] Last Admin: 04/19/17 09:34 Dose: Not Given Prednisone (Prednisone Tab) 40 mg PO DAILY [facility] Stop: 04/20/17 09:01 Last Admin: 04/19/17 09:35 Dose: 40 mg Valsartan (Diovan) 160 mg PO DAILY [facility] Last Admin: 04/19/17 09:35 Dose: 160 mg - Labs Labs: 04/19/17 05:20 04/19/17 05:20 PT 11.4 Seconds (9.8-13.1) 04/17/17 19:05 INR 1.0 (0.9-1.2) 04/17/17 19:05 APTT 26.3 Seconds (25.6-37.1) 04/17/17 19:05 - Constitutional Appears: No Acute Distress - Eye Exam Eye Exam: Normal appearance Pupil Exam: NORMAL ACCOMODATION - Respiratory Exam Respiratory Exam: Clear to Ausculation Bilateral, NORMAL BREATHING PATTERN. absent: Wheezes - Cardiovascular Exam Cardiovascular Exam: REGULAR RHYTHM, +S1, +S2 - GI/Abdominal Exam GI & Abdominal Exam: Soft, Normal Bowel Sounds. absent: Tenderness - Extremities Exam Extremities Exam: Full ROM, Normal Capillary Refill, Normal Inspection - Neurological Exam Neurological Exam: Alert, Awake, CN II-XII Intact, Oriented x3 - Psychiatric Exam Psychiatric exam: Normal Affect, Normal Mood - Skin Skin Exam: Normal Color Additional comments: Left abdominal wall: Tache noire Assessment and Plan - Assessment and Plan (Free Text) Assessment: 66 years old female with hx of HTN, DM II, Hypothyroidism, developed fever on flight from [place] 04/11/17. She had a dental extraction on 04/09/17nd was placed on Spirmyacine to which she developed a rash. She was seen at the Urgent care on 04/15/17 and was started on prednisone. Because of the Persisting fever she came to the ED. The daughter states that the patient could possibly have been exposed to Mediterranean rash when she was in her country. 1) Fever etiology unclear. with hx of incomplete antibiotics post dental extraction, which could mean an infected tooth. She has mild drug rash which could give her fever and she has the lung opacity. Also has exposure to possible Mediterranean tick. - Afebrile currently, TMAX of 99.9 yesterday - WBC continue trending down to 6.2 - Blood culture show not growthx2, Throat culture show no Group A strep. Urine culture: not significant - Consult Dr Holbrook ID - Continue Rocephin, Azithromycin, and Doxycyline ( for tick borne disease). One dose of Vancomycin has been ordered for today as well. 2) Lung Opacity r/o Pneumonia - Consult DR King Pulnilo appreciated - Continue above antibiotics 3) Azotemia ( Resolved after hydration) - IV Fluids D5 1/2 normal saline - BUN:14/Creatinine .8 4 )Leukocytosis ( Resloved) - WBC are trending down from 11 to 6.2 5) DM II - Diabetic diet - Glipizide - Regular insulin with Accucheck ACHS - 6) Diffuse Rash ( Resolved) - Benedryl ordered 25 mg PRN\ - Continue monitoring - ID consulted 7) Temporal headache ( resolved) - Tylenol 650 mg Q6 PRN 8). Elevated D Dimer- CT Chest negative for PE 9). DVT Prophylaxis - Lovenox Full code
--- NOTE | 2017-04-19 13:33 | CP.PCM.DIS ---
<Enrico Carey - Last Filed: 04/19/17 13:37> Provider - Provider Date of Admission: 04/18/17 00:04 Attending physician: Simón Moreno Time Spent in preparation of Discharge (in minutes): 30 Diagnosis - Discharge Diagnosis (1) Pneumonia Status: Acute Hospital Course - Lab Results Lab Results: Most Recent Lab Values WBC 6.2 K/uL (4.8-10.8) 04/19/17 05:20 RBC 3.94 Mil/uL (3.80-5.20) 04/19/17 05:20 Hgb 10.1 g/dL (12.0-16.0) L 04/19/17 05:20 Hct 30.0 % (34.0-47.0) L 04/19/17 05:20 MCV 76.1 fl (81.0-99.0) L 04/19/17 05:20 MCH 25.5 pg (27.0-31.0) L 04/19/17 05:20 MCHC 33.5 g/dL (33.0-37.0) 04/19/17 05:20 RDW 14.8 % (11.5-14.5) H 04/19/17 05:20 Plt Count 239 K/uL (130-400) 04/19/17 05:20 MPV 8.3 fl (7.2-11.7) 04/19/17 05:20 Neut % (Auto) 60.6 % (50.0-75.0) 04/19/17 05:20 Lymph % (Auto) 28.3 % (20.0-40.0) 04/19/17 05:20 Hyde % (Auto) 10.8 % (0.0-10.0) H 04/19/17 05:20 Eos % (Auto) 0.1 % (0.0-4.0) 04/19/17 05:20 Baso % (Auto) 0.2 % (0.0-2.0) 04/19/17 05:20 Neut # 3.7 K/uL (1.8-7.0) 04/19/17 05:20 Lymph # 1.7 K/uL (1.0-4.3) 04/19/17 05:20 Hyde # 0.7 K/uL (0.0-0.8) 04/19/17 05:20 Eos # 0.0 K/uL (0.0-0.7) 04/19/17 05:20 Baso # 0.0 K/uL (0.0-0.2) 04/19/17 05:20 ESR 43 mm/hr (0-30) H 04/17/17 19:05 PT 11.4 Seconds (9.8-13.1) 04/17/17 19:05 INR 1.0 (0.9-1.2) 04/17/17 19:05 APTT 26.3 Seconds (25.6-37.1) 04/17/17 19:05 D-Dimer, Quantitative 486 ng/mlDDU (0-230) H 04/17/17 19:05 pCO2 35 mm/Hg (35-45) 04/17/17 19:32 pO2 60 mm/Hg (80-100) L 04/17/17 19:32 HCO3 27.0 mmol/L (21-28) 04/17/17 19:32 ABG pH 7.48 (7.35-7.45) H 04/17/17 19:32 ABG Total CO2 27.2 mmol/L (22-28) 04/17/17 19:32 ABG O2 Saturation 96.4 % (95-98) 04/17/17 19:32 ABG Base Excess 2.8 mmol/L (-2.0-3.0) 04/17/17 19:32 John Test Yes 04/17/17 19:32 ABG Potassium 3.6 mmol/L (3.6-5.2) 04/17/17 19:32 A-a O2 Difference 46.0 mm/Hg 04/17/17 19:32 Sodium 132.0 mmol/L (132-148) 04/17/17 19:32 Chloride 102.0 mmol/L (98-107) 04/17/17 19:32 Glucose 55 mg/dL (65-105) L 04/17/17 19:32 Lactate 1.8 mmol/L (0.7-2.1) 04/17/17 19:32 FiO2 21.0 % 04/17/17 19:32 Sodium 137 mmol/l (132-148) 04/19/17 05:20 Potassium 3.8 MMOL/L (3.6-5.0) 04/19/17 05:20 Chloride 102 mmol/L (98-107) 04/19/17 05:20 Carbon Dioxide 29 mmol/L (22-30) 04/19/17 05:20 Anion Gap 10 (10-20) 04/19/17 05:20 BUN 14 mg/dl (7-17) 04/19/17 05:20 Creatinine 0.8 mg/dL (0.7-1.2) 04/19/17 05:20 Est GFR ( Amer) > 60 04/19/17 05:20 Est GFR (Non-Af Amer) > 60 04/19/17 05:20 POC Glucose (mg/dL) 284 mg/dL (65-110) H 04/19/17 10:36 Random Glucose 214 mg/dL (65-105) H 04/19/17 05:20 Calcium 8.3 mg/dL (8.4-10.2) L 04/19/17 05:20 Total Bilirubin 0.2 mg/dl (0.2-1.3) 04/19/17 05:20 AST 45 U/L (14-36) H D 04/19/17 05:20 ALT 73 U/L (9-52) H 04/19/17 05:20 Alkaline Phosphatase 123 U/L (38-126) 04/19/17 05:20 Troponin I < 0.0120 ng/mL (0.00-0.120) 04/17/17 19:05 Total Protein 5.9 G/DL (6.3-8.2) L 04/19/17 05:20 Albumin 3.2 g/dL (3.5-5.0) L 04/19/17 05:20 Globulin 2.7 gm/dL (2.2-3.9) 04/19/17 05:20 Albumin/Globulin Ratio 1.2 (1.0-2.1) 04/19/17 05:20 Arterial Blood Potassium 3.6 mmol/L (3.6-5.2) 04/17/17 19:32 Urine Color Yellow (YELLOW) 04/17/17 19:05 Urine Clarity Clear (Clear) 04/17/17 19:05 Urine pH 6.0 (5.0-8.0) 04/17/17 19:05 Ur Specific Kamuela 1.018 (1.003-1.030) 04/17/17 19:05 Urine Protein Negative mg/dL (NEGATIVE) 04/17/17 19:05 Urine Glucose (UA) Neg mg/dL (Normal) 04/17/17 19:05 Urine Ketones Negative mg/dL (NEGATIVE) 04/17/17 19:05 Urine Blood Negative (NEGATIVE) 04/17/17 19:05 Urine Nitrate Negative (NEGATIVE) 04/17/17 19:05 Urine Bilirubin Negative (NEGATIVE) 04/17/17 19:05 Urine Urobilinogen 0.2-1.0 mg/dL (0.2-1.0) 04/17/17 19:05 Ur Leukocyte Esterase Trace Claribel/uL (Negative) 04/17/17 19:05 Urine RBC (Auto) 2 /hpf (0-3) 04/17/17 19:05 Urine Microscopic WBC 2 /hpf (0-5) 04/17/17 19:05 Ur Squamous Epith Cells < 1 /hpf (0-5) 04/17/17 19:05 Urine Bacteria Few (<OCC) H 04/17/17 19:05 EBV Capsid Ag IgG Ab >750.00 U/mL H 04/17/17 20:30 EBV Capsid Ag IgM Ab <36.00 U/mL 04/17/17 20:30 EBV Nuclear Antigen Ab 479.00 U/mL H 04/17/17 20:30 EBV Interpretation See note 04/17/17 20:30 HIV-1 Ab Rapid Screen Non reactive (NON REAC) 04/17/17 22:42 Infectious Hyde Assay Negative (NEGATIVE) 04/17/17 20:30 Influenza Typ A,B (EIA) Negative for flu a/b (NEGATIVE) 04/17/17 19:05 Grp A Beta Strep Ag Negative (NEGATIVE) 04/17/17 20:25 - Hospital Course Hospital Course: Assessment: 66 years old female with hx of HTN, DM II, Hypothyroidism, developed fever on flight from [facility] 04/11/17. She had a dental extraction on 04/09/17nd was placed on Spirmyacine to which she developed a rash. She was seen at the Urgent care on 04/15/17 and was started on prednisone. Because of the Persisting fever she came to the ED. The daughter states that the patient could possibly have been exposed to [place] rash when she was in her country. 1) Fever etiology unclear. with hx of incomplete antibiotics post dental extraction, which could mean an infected tooth. She has mild drug rash which could give her fever and she has the lung opacity. Also has exposure to possible [place] tick. - Afebrile currently, TMAX of 99.9 yesterday - WBC continue trending down to 6.2 - Blood culture show not growthx2, Throat culture show no Group A strep. Urine culture: not significant - Consult Dr Holbrook ID - Rocephin, Azithromycin, and Doxycyline ( for tick borne disease). One dose of Vancomycin has been ordered for today as well. - Continue Doxycycline outpatient. 2) Lung Opacity r/o Pneumonia - Consult DR King Pulnilo appreciated - Continue above antibiotics 3) Azotemia ( Resolved after hydration) - IV Fluids D5 1/2 normal saline - BUN:14/Creatinine .8 4 )Leukocytosis ( Resloved) - WBC are trending down from 11 to 6.2 5) DM II - Diabetic diet - Glipizide - Regular insulin with Accucheck ACHS - 6) Diffuse Rash ( Resolved) - Benedryl ordered 25 mg PRN\ - Continue monitoring - ID consult appreciated 7) Temporal headache ( resolved) - Tylenol 650 mg Q6 PRN 8). Elevated D Dimer- CT Chest negative for PE 9). DVT Prophylaxis - Lovenox * PT is doing well. Rash has subsided on the extremities. Headache is resolved. Pt has been tolerating PO intake. Continue Doxycline 100 mg Q12. Follow up with Dr. Holbrook in 1 week, f/u with PMD in 2-3 days. ER precaution Discharge Exam - Head Exam Head Exam: NORMAL INSPECTION - Eye Exam Eye Exam: Normal appearance - Respiratory Exam Respiratory Exam: Clear to PA & Lateral, NORMAL BREATHING PATTERN - Cardiovascular Exam Cardiovascular Exam: REGULAR RHYTHM, +S1, +S2 - GI/Abdominal Exam GI & Abdominal Exam: Normal Bowel Sounds - Extremities Exam Extremities exam: normal inspection - Neurological Exam Neurological exam: Alert, CN II-XII Intact, Oriented x3 - Skin Additional comments: Left abdominal wall: [place] Discharge Plan - Discharge Medications Prescriptions: Doxycycline Hyclate 100 mg PO BID #14 capsule - Follow Up Plan Condition: GOOD Disposition: HOME/ ROUTINE Instructions: Tick Bite (GEN) Additional Instructions: Patient seem to be doing well. Rash has subsided. Has remained a febrile. Is tolerating PO intake. Patient is being discharged w/ a script for Doxycycline 100mg PO Q12. Please follow up with PMD in 2-3 days. Follow up with Dr. Holbrook in 1 week. - If the condition worsens or reoccurs, please return to ER immediately. Referrals: Abraham Holbrook MD [Staff Provider] - <Rodrigo Lu - Last Filed: 04/19/17 14:09> Provider - Provider Date of Admission: 04/18/17 00:04 Attending physician: Simón Moreno Consults: iD consult Diagnosis - Discharge Diagnosis (1) Fever in adult Status: Acute Priority: High Hospital Course - Lab Results Lab Results: Most Recent Lab Values WBC 6.2 K/uL (4.8-10.8) 04/19/17 05:20 RBC 3.94 Mil/uL (3.80-5.20) 04/19/17 05:20 Hgb 10.1 g/dL (12.0-16.0) L 04/19/17 05:20 Hct 30.0 % (34.0-47.0) L 04/19/17 05:20 MCV 76.1 fl (81.0-99.0) L 04/19/17 05:20 MCH 25.5 pg (27.0-31.0) L 04/19/17 05:20 MCHC 33.5 g/dL (33.0-37.0) 04/19/17 05:20 RDW 14.8 % (11.5-14.5) H 04/19/17 05:20 Plt Count 239 K/uL (130-400) 04/19/17 05:20 MPV 8.3 fl (7.2-11.7) 04/19/17 05:20 Neut % (Auto) 60.6 % (50.0-75.0) 04/19/17 05:20 Lymph % (Auto) 28.3 % (20.0-40.0) 04/19/17 05:20 Hyde % (Auto) 10.8 % (0.0-10.0) H 04/19/17 05:20 Eos % (Auto) 0.1 % (0.0-4.0) 04/19/17 05:20 Baso % (Auto) 0.2 % (0.0-2.0) 04/19/17 05:20 Neut # 3.7 K/uL (1.8-7.0) 04/19/17 05:20 Lymph # 1.7 K/uL (1.0-4.3) 04/19/17 05:20 Hyde # 0.7 K/uL (0.0-0.8) 04/19/17 05:20 Eos # 0.0 K/uL (0.0-0.7) 04/19/17 05:20 Baso # 0.0 K/uL (0.0-0.2) 04/19/17 05:20 ESR 43 mm/hr (0-30) H 04/17/17 19:05 PT 11.4 Seconds (9.8-13.1) 04/17/17 19:05 INR 1.0 (0.9-1.2) 04/17/17 19:05 APTT 26.3 Seconds (25.6-37.1) 04/17/17 19:05 D-Dimer, Quantitative 486 ng/mlDDU (0-230) H 04/17/17 19:05 pCO2 35 mm/Hg (35-45) 04/17/17 19:32 pO2 60 mm/Hg (80-100) L 04/17/17 19:32 HCO3 27.0 mmol/L (21-28) 04/17/17 19:32 ABG pH 7.48 (7.35-7.45) H 04/17/17 19:32 ABG Total CO2 27.2 mmol/L (22-28) 04/17/17 19:32 ABG O2 Saturation 96.4 % (95-98) 04/17/17 19:32 ABG Base Excess 2.8 mmol/L (-2.0-3.0) 04/17/17 19:32 John Test Yes 04/17/17 19:32 ABG Potassium 3.6 mmol/L (3.6-5.2) 04/17/17 19:32 A-a O2 Difference 46.0 mm/Hg 04/17/17 19:32 Sodium 132.0 mmol/L (132-148) 04/17/17 19:32 Chloride 102.0 mmol/L (98-107) 04/17/17 19:32 Glucose 55 mg/dL (65-105) L 04/17/17 19:32 Lactate 1.8 mmol/L (0.7-2.1) 04/17/17 19:32 FiO2 21.0 % 04/17/17 19:32 Sodium 137 mmol/l (132-148) 04/19/17 05:20 Potassium 3.8 MMOL/L (3.6-5.0) 04/19/17 05:20 Chloride 102 mmol/L (98-107) 04/19/17 05:20 Carbon Dioxide 29 mmol/L (22-30) 04/19/17 05:20 Anion Gap 10 (10-20) 04/19/17 05:20 BUN 14 mg/dl (7-17) 04/19/17 05:20 Creatinine 0.8 mg/dL (0.7-1.2) 04/19/17 05:20 Est GFR ( Amer) > 60 04/19/17 05:20 Est GFR (Non-Af Amer) > 60 04/19/17 05:20 POC Glucose (mg/dL) 284 mg/dL (65-110) H 04/19/17 10:36 Random Glucose 214 mg/dL (65-105) H 04/19/17 05:20 Calcium 8.3 mg/dL (8.4-10.2) L 04/19/17 05:20 Total Bilirubin 0.2 mg/dl (0.2-1.3) 04/19/17 05:20 AST 45 U/L (14-36) H D 04/19/17 05:20 ALT 73 U/L (9-52) H 04/19/17 05:20 Alkaline Phosphatase 123 U/L (38-126) 04/19/17 05:20 Troponin I < 0.0120 ng/mL (0.00-0.120) 04/17/17 19:05 Total Protein 5.9 G/DL (6.3-8.2) L 04/19/17 05:20 Albumin 3.2 g/dL (3.5-5.0) L 04/19/17 05:20 Globulin 2.7 gm/dL (2.2-3.9) 04/19/17 05:20 Albumin/Globulin Ratio 1.2 (1.0-2.1) 04/19/17 05:20 Arterial Blood Potassium 3.6 mmol/L (3.6-5.2) 04/17/17 19:32 Urine Color Yellow (YELLOW) 04/17/17 19:05 Urine Clarity Clear (Clear) 04/17/17 19:05 Urine pH 6.0 (5.0-8.0) 04/17/17 19:05 Ur Specific Kamuela 1.018 (1.003-1.030) 04/17/17 19:05 Urine Protein Negative mg/dL (NEGATIVE) 04/17/17 19:05 Urine Glucose (UA) Neg mg/dL (Normal) 04/17/17 19:05 Urine Ketones Negative mg/dL (NEGATIVE) 04/17/17 19:05 Urine Blood Negative (NEGATIVE) 04/17/17 19:05 Urine Nitrate Negative (NEGATIVE) 04/17/17 19:05 Urine Bilirubin Negative (NEGATIVE) 04/17/17 19:05 Urine Urobilinogen 0.2-1.0 mg/dL (0.2-1.0) 04/17/17 19:05 Ur Leukocyte Esterase Trace Claribel/uL (Negative) 04/17/17 19:05 Urine RBC (Auto) 2 /hpf (0-3) 04/17/17 19:05 Urine Microscopic WBC 2 /hpf (0-5) 04/17/17 19:05 Ur Squamous Epith Cells < 1 /hpf (0-5) 04/17/17 19:05 Urine Bacteria Few (<OCC) H 04/17/17 19:05 EBV Capsid Ag IgG Ab >750.00 U/mL H 04/17/17 20:30 EBV Capsid Ag IgM Ab <36.00 U/mL 04/17/17 20:30 EBV Nuclear Antigen Ab 479.00 U/mL H 04/17/17 20:30 EBV Interpretation See note 04/17/17 20:30 HIV-1 Ab Rapid Screen Non reactive (NON REAC) 04/17/17 22:42 Infectious Hyde Assay Negative (NEGATIVE) 04/17/17 20:30 Influenza Typ A,B (EIA) Negative for flu a/b (NEGATIVE) 04/17/17 19:05 Grp A Beta Strep Ag Negative (NEGATIVE) 04/17/17 20:25
--- NOTE | 2017-04-19 13:55 | CP.PCM.PN ---
Subjective - Date & Time of Evaluation Date of Evaluation: 04/19/17 Time of Evaluation: 08:00 - Subjective Subjective: cultures neg thus far con rx Objective - Vital Signs/Intake and Output Vital Signs (last 24 hours): Temp Pulse Resp BP Pulse Ox 97.9 F 67 17 121/66 95 04/19/17 07:33 04/19/17 07:33 04/19/17 07:33 04/19/17 07:33 04/19/17 07:33 - Medications Medications: Current Medications Acetaminophen (Tylenol 325mg Tab) 650 mg PO Q4 PRN PRN Reason: Pain, Mild (1-3) Atorvastatin Calcium (Lipitor) 10 mg PO DAILY [facility] Last Admin: 04/19/17 09:35 Dose: 10 mg Diphenhydramine HCl (Benadryl) 25 mg PO Q6 PRN PRN Reason: Rash Last Admin: 04/18/17 10:41 Dose: 25 mg Doxycycline Hyclate (Doryx) 100 mg PO Q12 [facility] Last Admin: 04/19/17 09:34 Dose: 100 mg Enoxaparin Sodium (Lovenox) 40 mg SC DAILY [facility] PRN Reason: Protocol Last Admin: 04/19/17 09:33 Dose: 40 mg Glipizide (Glucotrol Xl) 5 mg PO BRK [facility] Last Admin: 04/19/17 09:35 Dose: 5 mg Hydrochlorothiazide (Microzide) 12.5 mg PO DAILY [facility] Last Admin: 04/19/17 09:34 Dose: 12.5 mg Azithromycin 500 mg/ Sodium (Chloride) 250 mls @ 250 mls/hr IVPB DAILY [facility] Last Admin: 04/19/17 09:33 Dose: 250 mls/hr Ceftriaxone Sodium 1 gm/ (Sodium Chloride) 100 mls @ 100 mls/hr IVPB DAILY [facility] Last Admin: 04/19/17 09:33 Dose: 100 mls/hr Insulin Human Regular (Humulin R) 0 units SC ACHS [facility] Last Admin: 04/19/17 12:29 Dose: 6 units Levothyroxine Sodium (Synthroid) 75 mcg PO DAILY@0630 [facility] Last Admin: 04/19/17 06:44 Dose: 75 mcg Metoprolol Tartrate (Lopressor) 100 mg PO DAILY [facility] Last Admin: 04/19/17 09:34 Dose: Not Given Prednisone (Prednisone Tab) 40 mg PO DAILY [facility] Stop: 04/20/17 09:01 Last Admin: 04/19/17 09:35 Dose: 40 mg Valsartan (Diovan) 160 mg PO DAILY [facility] Last Admin: 04/19/17 09:35 Dose: 160 mg - Labs Labs: 04/19/17 05:20 04/19/17 05:20 PT 11.4 Seconds (9.8-13.1) 04/17/17 19:05 INR 1.0 (0.9-1.2) 04/17/17 19:05 APTT 26.3 Seconds (25.6-37.1) 04/17/17 19:05 - Constitutional Appears: Non-toxic - Head Exam Head Exam: NORMAL INSPECTION - Eye Exam Eye Exam: EOMI - ENT Exam ENT Exam: Normal External Ear Exam - Neck Exam Neck Exam: absent: Lymphadenopathy - Respiratory Exam Respiratory Exam: Clear to Ausculation Bilateral - Cardiovascular Exam Cardiovascular Exam: REGULAR RHYTHM - GI/Abdominal Exam GI & Abdominal Exam: Distended, Soft Assessment and Plan (1) Fever in adult Status: Acute
--- NOTE | 2017-04-19 16:06 | CP.PCM.PN ---
Subjective - Date & Time of Evaluation Date of Evaluation: 04/19/17 Time of Evaluation: 09:30 - Subjective Subjective: F/U Fever in adult. Pt with occasional dry cough, breathing well. Objective - Vital Signs/Intake and Output Vital Signs (last 24 hours): Temp Pulse Resp BP Pulse Ox 97.9 F 67 17 121/66 95 04/19/17 07:33 04/19/17 07:33 04/19/17 07:33 04/19/17 07:33 04/19/17 07:33 - Labs Labs: 04/19/17 05:20 04/19/17 05:20 PT 11.4 Seconds (9.8-13.1) 04/17/17 19:05 INR 1.0 (0.9-1.2) 04/17/17 19:05 APTT 26.3 Seconds (25.6-37.1) 04/17/17 19:05 - Constitutional Appears: No Acute Distress - Head Exam Head Exam: NORMAL INSPECTION - Eye Exam Eye Exam: PERRL - ENT Exam ENT Exam: Normal Oropharynx - Neck Exam Neck Exam: Normal Inspection - Respiratory Exam Respiratory Exam: NORMAL BREATHING PATTERN - Cardiovascular Exam Cardiovascular Exam: REGULAR RHYTHM - GI/Abdominal Exam GI & Abdominal Exam: Soft, Normal Bowel Sounds Additional comments: Kvng Noir to left upper abdomen improved. - Extremities Exam Extremities Exam: Normal Inspection - Back Exam Back Exam: NORMAL INSPECTION - Neurological Exam Neurological Exam: Alert, CN II-XII Intact, Oriented x3 - Psychiatric Exam Psychiatric exam: Normal Mood - Skin Skin Exam: Dry, Rash (Upper extremities improved), Warm Assessment and Plan (1) Fever in adult Status: Resolved (2) Skin rash Assessment & Plan: Improved. Status: Acute - Assessment and Plan (Free Text) Plan: Pulmonary clear to be discharged.
[2017-04-19] MEDS ORDERED: Insulin Regular 100 units/ml SC SCH (22:15)
[2017-04-19 22:17] LABS: HEPATITIS A IGM NEGATIVE (NEGATIVE); HEPATITIS B CORE AB NEGATIVE (NEGATIVE)
[2017-04-19 22:28] LABS: HEPATITIS B SURFACE AG NEGATIVE (NEGATIVE)
[2017-04-19 22:29] LABS: HEPATITIS C ANTIBODY NEGATIVE (NEGATIVE)
[2017-04-21 08:19] LABS: 23 KD (IGG) BAND Nonreactive
--- NOTE | 2017-04-25 13:16 | VASCULAR ---
PROCEDURE: Date of procedure: 04/18/2017 Procedure: 1. Placement of a right arm PICC with ultrasound and fluoroscopic guidance, CPT 34430 2. PICC tip confirmation with spot radiograph and is in the superior vena cava Medications: 4cc 1 percent lidocaine Total Fluoro time: 11.8 seconds Radiation: 1.38 MGy EBL: 2 cc HISTORY: Infection requiring long-term IV antibiotics TECHNIQUE: Following informed consent and procedure time-out, the patient was placed supine on the interventional table and the right arm prepped and draped in the usual sterile fashion. Ultrasound showed a patent and compressible right basilic vein. After the skin was anesthetized with lidocaine, the basilic vein was accessed with micro micropuncture technique using ultrasound guidance. A guidewire was then advanced under fluoroscopic guidance into the superior vena cava. An image documenting ultrasound guidance for vascular access was permanently saved. The length of the single-lumen 4 [place] PICC was trimmed to 37 centimeters and advanced through a peel-away sheath. The PICC was position with tip of PICC confirm a spot radiograph the superior vena cava. The PICC was secured to the patient's skin. The PICC was flushed. A biopatch and sterile dressing was applied. IMPRESSION: Placement of a single-lumen 4 [place] PICC trimmed to 37 centimeters via right basilic vein. The tip of the PICC is confirmed with spot radiograph and is in the superior vena cava.
== END 2017-04-19 14:32 | disposition home or self-care (01) | DRG 423 ==
LOC: H.ER 18:02 → H.ERHOLD 22:41 → OBSVTOIN 04-18 00:04 → H.MEDSURG1 04-18 02:23
PROVIDERS: ADMIT Internal Medicine; ATTEND Internal Medicine
PROC: 02HV33Z Insertion of Infusion Device into Superior Vena Cava, Percutaneous Approach (ICD-10-PCS; principal; 2017-04-18)
DX: A77 Spotted fever [tick-borne rickettsioses] (principal); I10 Essential (primary) hypertension; E11.9 Type 2 diabetes mellitus without complications; E03.9 Hypothyroidism, unspecified; D72.829 Elevated white blood cell count, unspecified; R79.89 Other specified abnormal findings of blood chemistry; R51 Headache; L27.0 Generalized skin eruption due to drugs and medicaments taken internally; T36.8X5A Adverse effect of other systemic antibiotics, initial encounter; R79.1 Abnormal coagulation profile; F10.21 Alcohol dependence, in remission